=== PATIENT | female | born 1955 | race Caucasian/White ===

== ENCOUNTER 2022-03-23 21:56 | Inpatient (IN) | payer OTHER, MEDICAID ==
[~2022-03-23] VITALS: Ht 167.6 cm; Wt 67.6 kg
[2022-03-23 22:10] VITALS: BP_SYST 108
[2022-03-23] MEDS ORDERED: PANTOPRAZOLE SODIUM 40 MG/VIAL (PROTONIX) IVP ONE (23:00)
[2022-03-23] MEDS ORDERED: ONDANSETRON HCL 4 MG/2 ML VIAL IVP ONE (23:00)
[2022-03-23] MEDS ORDERED: OCTREOTIDE ACETATE 50 MCG/ML AMP IVP ONE (23:00)
[2022-03-23 23:59] LABS: BASOPHILS % (AUTO) 0.4 % (0.0-2.0); EOSINOPHILS # (AUTO) 0.1 K/uL (0.0-0.4); HEMATOCRIT 28.1 % (36-48); HEMOGLOBIN 9.1 g/dL (12.0-16.0); LYMPHOCYTES # (AUTO) 1.7 K/uL (1.0-5.5); LYMPHOCYTES % (AUTO) 21.8 % (20.5-51.5); MEAN CORPUSCULAR HEMOGLOBIN 29 pg (27-31); MEAN CORPUSCULAR HGB CONC 33 % (32-36); MEAN CORPUSCULAR VOLUME 87 fL (79.0-98.0); MONOCYTES # (AUTO) 0.5 K/uL (0.0-1.0); MONOCYTES % (AUTO) 6.9 % (1.7-9.3); NEUTROPHILS # (AUTO) 5.3 K/uL (1.8-7.7); NEUTROPHILS % (AUTO) 69.9 % (40.0-70.0); PLATELET COUNT (AUTO) 149 K/uL (130-430); RED BLOOD CELL COUNT(AUTO) 3.21 MIL/uL (4.2-6.2); RED CELL DISTRIBUTION WIDTH 15.4 % (9.0-15.0); WHITE BLOOD COUNT (AUTO) 7.6 K/uL (4.8-10.8)
[2022-03-24 00:27] LABS: ANION GAP 5 (5-15); CALCIUM 8.4 mg/dL (8.4-11.0); CHLORIDE 102 mmol/L (98-107); GLUCOSE 99 mg/dL (70-99); UREA NITROGEN, BLOOD 24 mg/dL (8-21)
[2022-03-24 00:29] LABS: INR 1.1 (0.8-1.2); PROTHROMBIN TIME 11.8 SECS (9.5-12.5)
[2022-03-24 00:39] LABS: ALANINE AMINOTRANSFERASE 73 U/L (12-78); ALBUMIN 2.6 g/dL (3.4-4.8); ASPARTATE AMINOTRANSFERASE 116 U/L (10-37); LIPASE 364 U/L (73-393); TOTAL BILIRUBIN 0.8 mg/dL (0.0-1.0)
[2022-03-24 00:41] LABS: GFR AFRICAN AMERICAN 71 mL/min (>90)
[2022-03-24 00:54] LABS: BILIRUBIN,URINE NEGATIVE (NEGATIVE); BLOOD, URINE NEGATIVE (NEGATIVE); CLARITY/URINE CLEAR (CLEAR); GLUCOSE,URINE NEGATIVE (NEGATIVE); KETONES,URINE NEGATIVE (NEGATIVE); LEUKOCYTE ESTERASE ,URINE NEGATIVE (NEGATIVE); NITRITE, URINE NEGATIVE (NEGATIVE); PROTEIN URINE NEGATIVE (NEGATIVE); UROBILINOGEN,URINE 0.2 (0.2-1.0)
[2022-03-24 00:59] LABS: COLOR,URINE STRAW (YELLOW)
[2022-03-24] MEDS ORDERED: cefTRIAXone 1 GM in D5W 50 ML IV ONE (01:00)
[2022-03-24] MEDS ORDERED: ONDANSETRON HCL 4 MG/2 ML VIAL IVP PRN (02:30)
[2022-03-24] MEDS: PANTOPRAZOLE SODIUM 40 MG/VIAL (PROTONIX) IVP SCH ×2 (02:30→13:53)
[2022-03-24] MEDS ORDERED: cefTRIAXone 1 GM VIAL ONE (02:34)
[2022-03-24 05:51] VITALS: BP_SYST 131
[2022-03-24] MEDS ORDERED: PRO20 PO (06:47)
[2022-03-24 08:00] VITALS: BP_SYST 130
[2022-03-24] MEDS ORDERED: METOCLOPRAMIDE HCL 10 MG/2 ML VIAL IVP ONE (09:00)
[2022-03-24] MEDS ORDERED: FLUoxetine HCL 20 MG CAPSULE (PROzac) PO ONE (09:15)
[2022-03-24 09:58] LABS: BASOPHILS % (AUTO) 0.4 % (0.0-2.0); EOSINOPHILS # (AUTO) 0.1 K/uL (0.0-0.4); EOSINOPHILS % (AUTO) 0.9 % (0.0-4.0); HEMATOCRIT 28.8 % (36-48); HEMOGLOBIN 9.4 g/dL (12.0-16.0); LYMPHOCYTES # (AUTO) 2.7 K/uL (1.0-5.5); LYMPHOCYTES % (AUTO) 35.3 % (20.5-51.5); MEAN CORPUSCULAR HEMOGLOBIN 29 pg (27-31); MEAN CORPUSCULAR HGB CONC 33 % (32-36); MEAN CORPUSCULAR VOLUME 88 fL (79.0-98.0); MONOCYTES # (AUTO) 0.4 K/uL (0.0-1.0); MONOCYTES % (AUTO) 4.8 % (1.7-9.3); NEUTROPHILS # (AUTO) 4.5 K/uL (1.8-7.7); NEUTROPHILS % (AUTO) 58.6 % (40.0-70.0); PLATELET COUNT (AUTO) 148 K/uL (130-430); RED BLOOD CELL COUNT(AUTO) 3.29 MIL/uL (4.2-6.2); RED CELL DISTRIBUTION WIDTH 14.9 % (9.0-15.0); WHITE BLOOD COUNT (AUTO) 7.7 K/uL (4.8-10.8)
[2022-03-24 10:08] LABS: CALCIUM 8.6 mg/dL (8.4-11.0); CREATININE 1.11 mg/dL (0.55-1.30)
[2022-03-24 10:13] LABS: ALBUMIN 2.5 g/dL (3.4-4.8); TOTAL BILIRUBIN 0.6 mg/dL (0.0-1.0)
[2022-03-24] MEDS: OSELTAMIVIR PHOSPHATE 75 MG CAPSULE PO SCH ×2 (10:37→20:12)
[2022-03-24 12:00] VITALS: BP_SYST 120
[2022-03-24] MEDS: METOCLOPRAMIDE HCL 10 MG/2 ML VIAL IVP SCH ×2 (13:53→18:33)
[2022-03-24 16:00] VITALS: BP_SYST 125
[2022-03-24 20:00] VITALS: BP_SYST 136
[2022-03-25 00:32] VITALS: BP_SYST 100
[2022-03-25] MEDS: METOCLOPRAMIDE HCL 10 MG/2 ML VIAL IVP SCH ×4 (01:22→18:11)
[2022-03-25] MEDS: PANTOPRAZOLE SODIUM 40 MG/VIAL (PROTONIX) IVP SCH ×2 (01:23→18:10)
[2022-03-25 08:00] VITALS: BP_SYST 129
[2022-03-25 08:27] LABS: BASOPHILS % (AUTO) 0.4 % (0.0-2.0); EOSINOPHILS # (AUTO) 0.1 K/uL (0.0-0.4); EOSINOPHILS % (AUTO) 0.9 % (0.0-4.0); HEMATOCRIT 25.5 % (36-48); HEMOGLOBIN 8.4 g/dL (12.0-16.0); LYMPHOCYTES # (AUTO) 1.9 K/uL (1.0-5.5); LYMPHOCYTES % (AUTO) 33.5 % (20.5-51.5); MEAN CORPUSCULAR HEMOGLOBIN 29 pg (27-31); MEAN CORPUSCULAR HGB CONC 33 % (32-36); MEAN CORPUSCULAR VOLUME 87 fL (79.0-98.0); MONOCYTES # (AUTO) 0.3 K/uL (0.0-1.0); MONOCYTES % (AUTO) 5.4 % (1.7-9.3); NEUTROPHILS # (AUTO) 3.5 K/uL (1.8-7.7); NEUTROPHILS % (AUTO) 59.8 % (40.0-70.0); PLATELET COUNT (AUTO) 135 K/uL (130-430); RED BLOOD CELL COUNT(AUTO) 2.94 MIL/uL (4.2-6.2); RED CELL DISTRIBUTION WIDTH 15.3 % (9.0-15.0); WHITE BLOOD COUNT (AUTO) 5.8 K/uL (4.8-10.8)
[2022-03-25 08:28] LABS: ALBUMIN 2.5 g/dL (3.4-4.8); CALCIUM 8.6 mg/dL (8.4-11.0); CREATININE 1.03 mg/dL (0.55-1.30)
[2022-03-25] MEDS: OSELTAMIVIR PHOSPHATE 75 MG CAPSULE PO SCH ×2 (09:00→20:40)
[2022-03-25] MEDS: FLUoxetine HCL 20 MG CAPSULE (PROzac) PO SCH (09:00)
[2022-03-25] MEDS ORDERED: FLUoxetine HCL 20 MG CAPSULE (PROzac) PO SCH (09:00)
[2022-03-25 13:15] VITALS: BP_SYST 127
[2022-03-25] MEDS ORDERED: MEPERIDINE HCL/PF 25 MG/ML DISP.SYRIN ONE (14:38)
[2022-03-25] MEDS ORDERED: MIDAZOLAM HCL 5 MG/5 ML VIAL ONE (14:39)
[2022-03-25] MEDS ORDERED: fentaNYL CITRATE/PF 100 MCG/2 ML AMP ONE (14:46)
[2022-03-25] MEDS ORDERED: SIMETHICONE 40 MG/0.6 ML ML ONE (14:47)
[2022-03-25 15:06] LABS: HEPATITIS B CORE AB, TOTAL Positive (Negative); HEPATITIS B SURFACE AG Negative (Negative)
[2022-03-25 17:30] VITALS: BP_SYST 126
[2022-03-25 18:47] VITALS: BP_SYST 135
[2022-03-25 20:00] VITALS: BP_SYST 118
[2022-03-26 00:16] VITALS: BP_SYST 122
[2022-03-26] MEDS: PANTOPRAZOLE SODIUM 40 MG/VIAL (PROTONIX) IVP SCH ×2 (03:15→15:58)
[2022-03-26] MEDS: METOCLOPRAMIDE HCL 10 MG/2 ML VIAL IVP SCH ×2 (06:44→11:53)
[2022-03-26 08:13] LABS: ALBUMIN 2.5 g/dL (3.4-4.8); CALCIUM 8.9 mg/dL (8.4-11.0); TOTAL BILIRUBIN 0.9 mg/dL (0.0-1.0)
[2022-03-26 08:55] LABS: BASOPHILS % (AUTO) 0.4 % (0.0-2.0); EOSINOPHILS # (AUTO) 0.1 K/uL (0.0-0.4); EOSINOPHILS % (AUTO) 1.4 % (0.0-4.0); HEMATOCRIT 27.1 % (36-48); HEMOGLOBIN 8.9 g/dL (12.0-16.0); LYMPHOCYTES # (AUTO) 1.9 K/uL (1.0-5.5); LYMPHOCYTES % (AUTO) 36.2 % (20.5-51.5); MEAN CORPUSCULAR HEMOGLOBIN 29 pg (27-31); MEAN CORPUSCULAR HGB CONC 33 % (32-36); MEAN CORPUSCULAR VOLUME 87 fL (79.0-98.0); MONOCYTES # (AUTO) 0.3 K/uL (0.0-1.0); MONOCYTES % (AUTO) 6.3 % (1.7-9.3); NEUTROPHILS # (AUTO) 2.9 K/uL (1.8-7.7); NEUTROPHILS % (AUTO) 55.7 % (40.0-70.0); PLATELET COUNT (AUTO) 126 K/uL (130-430); RED CELL DISTRIBUTION WIDTH 15.2 % (9.0-15.0); WHITE BLOOD COUNT (AUTO) 5.2 K/uL (4.8-10.8)
[2022-03-26] MEDS: FLUoxetine HCL 20 MG CAPSULE (PROzac) PO SCH (09:10)
[2022-03-26] MEDS: OSELTAMIVIR PHOSPHATE 75 MG CAPSULE PO SCH (09:10)
[2022-03-26 09:18] VITALS: BP_SYST 137
[2022-03-26 11:07] LABS: ALPHA-1-ANTITRYPSIN, S 156 mg/dL (101-187)
[2022-03-26 11:42] VITALS: BP_SYST 130
[2022-03-26 12:06] LABS: FERRITIN 30 ng/mL (15-150)
[2022-03-26 13:06] LABS: ANTI NUCLEAR AB WITH REFLEX Positive (Negative)
[2022-03-26] MEDS ORDERED: PANT20TA2 PO (13:46)
[2022-03-26] MEDS ORDERED: MULT-591 PO (13:50)
[2022-03-26] MEDS ORDERED: PROP10TA10 PO (13:54)
[2022-03-26] MEDS ORDERED: OSEL75CA PO (13:56)
[2022-03-26 15:12] VITALS: BP_SYST 130
[2022-03-26 16:05] VITALS: BP_SYST 128
[2022-03-27 01:06] LABS: AFP, TUMOR MARKER 4.1 ng/mL (0.0-9.2)
== END 2022-03-26 18:15 | disposition home or self-care (01) | DRG 432 ==
LOC: SED 21:56 → STU 03-24 02:19
PROVIDERS: ADMIT Internal Medicine; ATTEND Internal Medicine
PROC: 0DH63UZ Insertion of Feeding Device into Stomach, Percutaneous Approach (ICD-10-PCS; 2022-03-25)
PROC: 0DB78ZX Excision of Stomach, Pylorus, Via Natural or Artificial Opening Endoscopic, Diagnostic (ICD-10-PCS; principal; 2022-03-25 14:30)
PROC: 06L38CZ Occlusion of Esophageal Vein with Extraluminal Device, Via Natural or Artificial Opening Endoscopic (ICD-10-PCS; 2022-03-25 14:30)
DX: K74.60 Unspecified cirrhosis of liver (principal); I85.11 Secondary esophageal varices with bleeding; D62 Acute posthemorrhagic anemia; E44.1 Mild protein-calorie malnutrition; E87.1 Hypo-osmolality and hyponatremia; F33.1 Major depressive disorder, recurrent, moderate; J10.1 Influenza due to other identified influenza virus with other respiratory manifestations; F03.90 Unspecified dementia, unspecified severity, without behavioral disturbance, psychotic disturbance, mood disturbance, and anxiety; Z20.822 Contact with and (suspected) exposure to COVID-19; R13.10 Dysphagia, unspecified; J45.909 Unspecified asthma, uncomplicated; K31.7 Polyp of stomach and duodenum; K75.9 Inflammatory liver disease, unspecified; Z80.6 Family history of leukemia; Z80.49 Family history of malignant neoplasm of other genital organs; Z68.24 Body mass index [BMI] 24.0-24.9, adult
CPT/HCPCS: 36415; 43239; 43244; 71045; 76376; 80053; 81003; 82103; 82105; 82728; 83516; 83605; 83690; 84484; 85025; 85610-TC; 85730-TC; 86038; 86704; 86706; 86708; 86803; 87040; 87081; 87086; 87340; 88305; 88312; 88313; 96365; 96375; 99285; C9113; G0378; G9035; J0696; J2175; J2250; J2354; J2405; J2765; J3010

== ENCOUNTER 2022-10-28 16:47 | Emergency (ER) | payer OTHER, MEDICAID ==
[~2022-10-28] VITALS: Ht 167.6 cm; Wt 63.5 kg
[~2022-10-28 16:47] MED LIST: MULT-591 PO; OSEL75CA PO; PANT20TA2 PO; PRO20 PO; PROP10TA10 PO
[2022-10-28 16:56] VITALS: BP_SYST 140; PULSE 88; RESP 17; TEMP 97.9; O2SAT 98
[2022-10-28 17:42] LABS: BASOPHILS # (AUTO) 0.1 K/uL (0.0-0.2); BASOPHILS % (AUTO) 0.8 % (0.0-2.0); EOSINOPHILS # (AUTO) 0.1 K/uL (0.0-0.4); EOSINOPHILS % (AUTO) 1.6 % (0.0-4.0); HEMATOCRIT 28.3 % (36-48); LYMPHOCYTES # (AUTO) 2.4 K/uL (1.0-5.5); LYMPHOCYTES % (AUTO) 29.2 % (20.5-51.5); MEAN CORPUSCULAR HEMOGLOBIN 24 pg (27-31); MEAN CORPUSCULAR HGB CONC 32 % (32-36); MEAN CORPUSCULAR VOLUME 77 fL (79.0-98.0); MONOCYTES # (AUTO) 0.6 K/uL (0.0-1.0); MONOCYTES % (AUTO) 7.3 % (1.7-9.3); NEUTROPHILS % (AUTO) 61.1 % (40.0-70.0); PLATELET COUNT (AUTO) 187 K/uL (130-430); RED BLOOD CELL COUNT(AUTO) 3.67 MIL/uL (4.2-6.2); RED CELL DISTRIBUTION WIDTH 21.8 % (9.0-15.0); WHITE BLOOD COUNT (AUTO) 8.2 K/uL (4.8-10.8)
[2022-10-28 18:03] LABS: CALCIUM 8.1 mg/dL (8.4-11.0); CREATININE 1.17 mg/dL (0.55-1.30)
[2022-10-28 18:07] LABS: ALBUMIN 2.7 g/dL (3.4-4.8); TOTAL PROTEIN, SERUM 9.1 g/dL (6.4-8.3)
[2022-10-28 18:59] LABS: BILIRUBIN,URINE NEGATIVE (NEGATIVE); BLOOD, URINE NEGATIVE (NEGATIVE); COLOR,URINE YELLOW (YELLOW); GLUCOSE,URINE NEGATIVE (NEGATIVE); KETONES,URINE NEGATIVE (NEGATIVE); LEUKOCYTE ESTERASE ,URINE NEGATIVE (NEGATIVE); NITRITE, URINE NEGATIVE (NEGATIVE); PROTEIN URINE NEGATIVE (NEGATIVE); UROBILINOGEN,URINE 0.2 (0.2-1.0)
[2022-10-28 19:00] LABS: CLARITY/URINE SLIGHTLY HAZY (CLEAR)
[2022-10-28] MEDS ORDERED: MAG HYDROX/AL HYDROX/SIMETH 30 ML, DICYCLOMINE HCL 20 MG, LIDOCAINE VISCOUS 2% 15ML (PO... PO ONE ×3 (19:30)
[2022-10-28] MEDS ORDERED: OMEP40CA20 PO (20:08)
[2022-10-28 20:22] VITALS: BP_SYST 135; PULSE 90; RESP 17; TEMP 97.9; O2SAT 98
== END 2022-10-28 20:22 | disposition home or self-care (01) ==
LOC: SED 16:47
DX: K74.60 Unspecified cirrhosis of liver (principal); K29.70 Gastritis, unspecified, without bleeding; R10.13 Epigastric pain; R10.11 Right upper quadrant pain; Z79.899 Other long term (current) drug therapy
CPT/HCPCS: 99283; 80053; 82140; 83690; 85025; 36415; 81003; J2001

== ENCOUNTER 2022-12-10 20:15 | Emergency (ER) | payer OTHER, MEDICAID ==
[~2022-12-10] VITALS: Ht 165.1 cm; Wt 63.5 kg
[~2022-12-10 20:15] MED LIST changes: +OMEP40CA20 PO
[2022-12-10 20:20] VITALS: BP_SYST 140; PULSE 95; RESP 20; TEMP 96.8; O2SAT 100
[2022-12-10 23:15] LABS: BASOPHILS % (AUTO) 0.6 % (0.0-2.0); EOSINOPHILS # (AUTO) 0.1 K/uL (0.0-0.4); EOSINOPHILS % (AUTO) 1.7 % (0.0-4.0); HEMATOCRIT 28.4 % (36-48); LYMPHOCYTES # (AUTO) 1.9 K/uL (1.0-5.5); MEAN CORPUSCULAR HEMOGLOBIN 25 pg (27-31); MEAN CORPUSCULAR HGB CONC 32 % (32-36); MEAN CORPUSCULAR VOLUME 78 fL (79.0-98.0); MONOCYTES # (AUTO) 0.5 K/uL (0.0-1.0); MONOCYTES % (AUTO) 9.3 % (1.7-9.3); NEUTROPHILS # (AUTO) 2.6 K/uL (1.8-7.7); NEUTROPHILS % (AUTO) 50.4 % (40.0-70.0); PLATELET COUNT (AUTO) 144 K/uL (130-430); RED BLOOD CELL COUNT(AUTO) 3.65 MIL/uL (4.2-6.2); RED CELL DISTRIBUTION WIDTH 21.1 % (9.0-15.0); WHITE BLOOD COUNT (AUTO) 5.1 K/uL (4.8-10.8)
[2022-12-10 23:31] LABS: CALCIUM 8.9 mg/dL (8.4-11.0); CREATININE 0.94 mg/dL (0.55-1.30); POTASSIUM 4.1 mmol/L (3.5-5.1)
[2022-12-10 23:36] LABS: ALBUMIN 2.8 g/dL (3.4-4.8); TOTAL BILIRUBIN 0.8 mg/dL (0.0-1.0); TOTAL PROTEIN, SERUM 8.5 g/dL (6.4-8.3)
[2022-12-11] MEDS ORDERED: DOXY100C5 PO (04:28)
[2022-12-11 07:36] VITALS: BP_SYST 115; PULSE 67; RESP 16; TEMP 97.3; O2SAT 100
== END 2022-12-11 07:38 | disposition home or self-care (01) ==
LOC: SED 20:15
DX: L03.115 Cellulitis of right lower limb (principal); R22.41 Localized swelling, mass and lump, right lower limb; Z79.899 Other long term (current) drug therapy
CPT/HCPCS: 36415; 80053; 83605; 85025; 87040; 99285